=== PATIENT | female | born 1935 | race Caucasian/White ===

== ENCOUNTER 2017-02-08 09:58 | Emergency (ER) | payer OTHER ==
[~2017-02-08] VITALS: Ht 149.9 cm; Wt 72.9 kg
[~2017-02-08 09:58] MED LIST: ASPIRIN E.C.81 M1 PO; Bactrim,Septra DS 80 PO; CUBICIN500 MG/10 IV; Claritin,Alavart PO; Levothroid,Synthroid PO; Rocephin IV; STELAZINE5 MG PO; THERAGRAN1 TABLET PO; Tylenol Regular Stre PO; Vitamin D PO
[2017-02-08 14:12] VITALS: BP 174/94
== END 2017-02-08 14:12 | disposition home or self-care (01) ==
LOC: EME 09:58
DX: S63.501A Unspecified sprain of right wrist, initial encounter (principal); S50.01XA Contusion of right elbow, initial encounter; S50.311A Abrasion of right elbow, initial encounter; S60.811A Abrasion of right wrist, initial encounter; W18.39XA Other fall on same level, initial encounter
CPT/HCPCS: 73080; 73110; 99281; 99283